=== PATIENT | male | born 1965 | race Caucasian/White ===

== ENCOUNTER 2021-02-04 06:00 | Outpatient (RCR) | payer OTHER, SELFPAY | END 2021-03-05 23:59 | disposition home or self-care (01) | LOC: SOT 06:00 | PROVIDERS: PCP Family Medicine; Visit Provider Family Medicine | DX: M77.12 Lateral epicondylitis, left elbow (principal) | CPT/HCPCS: 97035; 97110; 97140; 97165; 97168 ==

== ENCOUNTER 2021-07-02 06:00 | Outpatient (RCR) | payer OTHER, SELFPAY | END 2021-07-04 23:59 | disposition home or self-care (01) | LOC: SPT 06:00 | PROVIDERS: PCP Family Medicine; Referring Provider Family Medicine; Visit Provider Family Medicine | DX: R26.9 Unspecified abnormalities of gait and mobility (principal) | CPT/HCPCS: 97110; 97161 ==

== ENCOUNTER 2021-07-05 06:00 | Outpatient (RCR) | payer OTHER, SELFPAY | END 2021-08-03 23:59 | disposition home or self-care (01) | LOC: SPT 06:00 | PROVIDERS: PCP Family Medicine; Referring Provider Family Medicine; Visit Provider Family Medicine | DX: R26.9 Unspecified abnormalities of gait and mobility (principal) | CPT/HCPCS: 97110; 97112 ==

== ENCOUNTER 2021-08-04 06:00 | Outpatient (RCR) | payer OTHER, SELFPAY | END 2021-09-03 23:59 | disposition home or self-care (01) | LOC: SPT 06:00 | PROVIDERS: PCP Family Medicine; Referring Provider Family Medicine; Visit Provider Family Medicine | DX: R26.9 Unspecified abnormalities of gait and mobility (principal) | CPT/HCPCS: 97110; 97140 ==

== ENCOUNTER 2021-09-04 06:00 | Outpatient (RCR) | payer OTHER, SELFPAY | END 2021-09-19 23:00 | disposition home or self-care (01) | LOC: SPT 06:00 | PROVIDERS: PCP Family Medicine; Referring Provider Family Medicine; Visit Provider Family Medicine | DX: R26.9 Unspecified abnormalities of gait and mobility (principal); M54.2 Cervicalgia | CPT/HCPCS: 97110; 97140 ==

== ENCOUNTER → 2021-12-11 09:48 | Outpatient (BNVA) | payer OTHER, SELFPAY | PROVIDERS: PCP Family Medicine; Referring Provider Nurse Practitioner; Visit Provider Podiatrist Foot & Ankle Surgery | DX: M21.611 Bunion of right foot (principal); M21.612 Bunion of left foot; M21.41 Flat foot [pes planus] (acquired), right foot; M21.42 Flat foot [pes planus] (acquired), left foot | CPT/HCPCS: 99203; 99204 ==

== ENCOUNTER 2022-12-12 11:27 | Outpatient (RCR) | payer OTHER, SELFPAY | END 2023-01-03 23:59 | disposition home or self-care (01) | LOC: SPT 11:27 | PROVIDERS: Visit Provider Nurse Practitioner | DX: M25.512 Pain in left shoulder (principal) | CPT/HCPCS: 97110; 97161 ==

== ENCOUNTER → 2022-12-15 08:58 | Outpatient (BNVA) | payer OTHER, SELFPAY | PROVIDERS: Visit Provider Podiatrist Foot & Ankle Surgery | DX: M21.611 Bunion of right foot (principal); M21.612 Bunion of left foot; M79.671 Pain in right foot; M79.672 Pain in left foot; M21.41 Flat foot [pes planus] (acquired), right foot; M21.42 Flat foot [pes planus] (acquired), left foot; M20.12 Hallux valgus (acquired), left foot; M20.11 Hallux valgus (acquired), right foot | CPT/HCPCS: 99213 ==

== ENCOUNTER 2023-01-04 06:00 | Outpatient (RCR) | payer OTHER, SELFPAY | END 2023-02-03 23:59 | disposition home or self-care (01) | LOC: SPT 06:00 | PROVIDERS: Visit Provider Nurse Practitioner | DX: M25.512 Pain in left shoulder (principal) | CPT/HCPCS: 97110 ==

== ENCOUNTER 2023-02-19 11:21 | Outpatient (CLI) | payer OTHER, SELFPAY ==
--- NOTE | 2023-02-19 | ECG_ITS ---
[facility] Test Date: 2023-02-19 Pat Name: Matty Cottrell Department: Room: Gender: Male Student Teaching Coordinator: : 1965 Requested By: Jelena Kaur Order Number: [id number] Hodge MD: Lorrie Bridges M.D. Interpretive Statements NAME OF STUDY: TREADMILL STRESS TEST INDICATION: Chest Pain Baseline blood pressure of 121/80 mm Hg, heart rate 61 beats per minute and oxygen saturation of 98%. EKG showed sinus rhythm, incomplete RBBB. Non specific T wave inversion. ??? The patient exercised for 8 min 30 seconds on a [standard Ricki protocol]. Patient attained a maximum heart rate of 146 beats per minute( 89 % of the maximum predicted heart rate) with a blood pressure at the peak exercise of 171/59 mm Hg. The EKG at the peak exercise revealed no significant ST-T wave changes. Patient did [not have any chest pain or any significant arrhythmis with the exercise]??? During the recovery phase, there were no new changes. ??? Blood pressure at the end of the recovery phase was 153/77 mm Hg with a heart rate of 93 beats per minute. ??? CONCLUSION: 1. Normal EKG response to treadmill exercise. 2. No exercise-induced chest pain or cardiac arrhythmia. 3. Excellent exercise tolerance, attained a maximum of 10.2 METs. 4. Baseline normal blood pressure with normal response to exercise. Electronically Signed On 02-22-2023 23:14:34 ASSOCIATE DIRECTOR QA by Lorrie Bridges M.D. [email or web address]
[2023-02-19 13:02] VITALS: BP 151/86; PULSE 96
== END 2023-02-19 11:22 | disposition home or self-care (01) ==
LOC: CDL 11:21
PROVIDERS: PCP Nurse Practitioner; Visit Provider Nurse Practitioner
DX: R07.9 Chest pain, unspecified (principal)
CPT/HCPCS: 93017

== ENCOUNTER → 2023-02-25 13:24 | Outpatient (BNVA) | payer OTHER, SELFPAY | PROVIDERS: PCP Nurse Practitioner; Visit Provider Nurse Practitioner Family | DX: L82.1 Other seborrheic keratosis (principal); D22.4 Melanocytic nevi of scalp and neck; L57.8 Other skin changes due to chronic exposure to nonionizing radiation; L81.4 Other melanin hyperpigmentation | CPT/HCPCS: 99203 ==

== ENCOUNTER → 2023-05-15 09:37 | Outpatient (BNVA) | payer OTHER, SELFPAY | PROVIDERS: PCP Nurse Practitioner; Referring Provider Nurse Practitioner; Visit Provider Internal Medicine | DX: R79.89 Other specified abnormal findings of blood chemistry (principal); R53.83 Other fatigue | CPT/HCPCS: 99204 ==

== ENCOUNTER 2023-05-18 08:19 | Outpatient (CLI) | payer OTHER, SELFPAY ==
[2023-05-18 08:45] LABS: Basophils # 0.1 10^3/uL (0.0-0.1); Basophils % 0.8 %; Eosinophils # 0.2 10^3/uL (0.0-0.8); Eosinophils % 3.5 %; Hematocrit 46.2 % (37-53); Lymphocytes # 1.7 10^3/uL (0.8-4.8); Lymphocytes % 28.8 %; Mean Corpuscular HGB Conc 35.1 g/dL (30-55); Mean Corpuscular Hemoglobin 30.3 pg (27-33); Mean Corpuscular Volume 86.5 fl (82-101); Mean Platelet Volume 9.6 fL (7.4-10.4); Monocytes # 0.5 10^3/uL (0.2-0.9); Monocytes % 8.9 %; Neutrophils # 3.42 10^3/uL (1.8-7.7); Neutrophils % 57.7 %; Nucleated Red Blood Cells % 0 %; Platelet Count 200 10^3/cmm (157-399); Red Blood Count 5.34 10^6/uL (3.85-5.65); Red Cell Distribution Width 12.6 % (12.1-15.1); White Blood Count 5.94 10^3/uL (3.29-11.43)
[2023-05-18 09:14] LABS: Alanine Aminotransferase 26 U/L (0-41); Albumin Level 4.2 g/dL (3.5-5.2); Alkaline Phosphatase 63 U/L (40-130); Anion Gap 11.2 (5-19); Aspartate Amino Transferase 17 U/L (0-40); Blood Urea Nitrogen 15 mg/dL (6-20); Calcium 8.9 mg/dL (8.5-10.5); Carbon Dioxide 26 mmol/L (22-29); Chloride 106 mmol/L (98-107); Chol HDL Ratio 3.31 mg/dL (1.0-5.00); Cholesterol 116 mg/dL (0-200); Free T4 Free Thyroxine 0.79 ng/dL (0.82-1.77); Globulin 2.2 g/dL (1.3-4.6); Glucose 102 mg/dL (65-115); HDL Cholesterol 35 mg/dL (60-100); LDL Cholesterol Calculated 56 mg/dL (50-129); Osmolality Calculated 289 mOsm/kg (285-295); Potassium 4.2 mmol/L (3.5-5.1); Prostate Specific Antigen Scr 2.83 ng/mL (0-4); Sodium 139 mmol/L (136-145); Testosterone Total 402.3 ng/dL (193-740); Thyroid Stimulating Hormone 2.39 uIU/mL (0.27-4.20); Total Bilirubin 0.3 mg/dL (0.15-1.2); Total Protein 6.4 g/dL (6.6-8.7); Triglycerides 123 mg/dL (0-150)
[2023-05-18 09:44] LABS: Prolactin 10.56 ng/mL (4.0-15.2)
== END 2023-05-18 08:20 | disposition home or self-care (01) ==
LOC: LAB 08:21
PROVIDERS: PCP Nurse Practitioner; Visit Provider Internal Medicine
DX: R79.89 Other specified abnormal findings of blood chemistry (principal); R53.83 Other fatigue
CPT/HCPCS: 36415; 80053; 80061; 84146; 84403; 84439; 84443; 85025; G0103

== ENCOUNTER 2023-06-02 07:44 | Outpatient (CLI) | payer OTHER, SELFPAY ==
[2023-06-02 08:32] LABS: Free T4 Free Thyroxine 1.01 ng/dL (0.82-1.77)
== END 2023-06-02 07:45 | disposition home or self-care (01) ==
LOC: LAB 07:45
PROVIDERS: PCP Nurse Practitioner; Visit Provider Internal Medicine
DX: R53.83 Other fatigue (principal)
CPT/HCPCS: 36415; 84439

== ENCOUNTER 2023-06-22 07:59 | Outpatient (CLI) | payer OTHER, SELFPAY ==
[2023-06-22 09:55] LABS: Free T4 Free Thyroxine 1.01 ng/dL (0.82-1.77); Testosterone Total 361.7 ng/dL (193-740)
== END 2023-06-22 08:00 | disposition home or self-care (01) ==
LOC: LAB 08:00
PROVIDERS: PCP Nurse Practitioner; Visit Provider Internal Medicine
DX: R79.89 Other specified abnormal findings of blood chemistry (principal); R53.83 Other fatigue; E07.9 Disorder of thyroid, unspecified
CPT/HCPCS: 36415; 84403; 84439

== ENCOUNTER → 2023-06-25 07:30 | Outpatient (BNVA) | payer OTHER, SELFPAY | PROVIDERS: PCP Nurse Practitioner; Visit Provider Internal Medicine | DX: R79.89 Other specified abnormal findings of blood chemistry (principal); R53.83 Other fatigue; N52.9 Male erectile dysfunction, unspecified; F43.10 Post-traumatic stress disorder, unspecified | CPT/HCPCS: 99214 ==

== ENCOUNTER → 2023-08-26 09:25 | Outpatient (BNVA) | payer OTHER, SELFPAY | PROVIDERS: PCP Nurse Practitioner; Visit Provider Specialist | DX: M25.561 Pain in right knee (principal); G89.29 Other chronic pain | CPT/HCPCS: 73560; 73565; 99204 ==

== ENCOUNTER → 2023-09-22 07:35 | Outpatient (CLI) | payer OTHER, SELFPAY ==
--- NOTE | 2023-09-22 08:00 | MR_ITS ---
WS: [id number] MRI RIGHT KNEE NONCONTRAST TECHNIQUE: Axial PD, coronal PD fat sat, coronal PD, sagittal PD, and sagittal PD fat-sat images obta ined. CLINICAL INFORMATION: right knee pain COMPARISON: None. FINDINGS: Distal quadriceps and patellar tendons are intact. Hypertrophic patella. Diffuse thickening with incr eased signal involving the ACL compatible with mucoid degeneration. Small ganglion cyst at the ACL in sertion measuring 7.5 mm. Normal PCL. Tiny suprapatellar effusion. Longitudinal tear involving the medial meniscus extending to the articular surface at the posterior h orn. Normal lateral meniscus. Advanced chondromalacia patella. Subchondral edema in the patella. Normal medial and lateral patellar retinaculum. Normal popliteal fossa. Medial and lateral collateral ligaments appear intact. Normal p opliteus. Normal popliteal fossa. Fibula head appears normal. MR/MR knee RT wo con* [id number] IMPRESSION: 1. Diffuse thickening with mucoid degeneration involving the ACL with increase d T1 and T2 signal. 2. Normal PCL. 3. Small ganglion cyst along the distal ACL insertion measuring 7.5 mm. 4. Longitudinal tear involving the posterior horn medial meniscus extending to the articular surface and the meniscal root. 5. Advanced chondromalacia patella with subchondral edema. Chondromalacia wors e involving the medial patellar facet. 6. 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 Outbridge grading: grade IV: full-thickness cartilage loss with underlying bone reactive changes
== END | disposition home or self-care (01) ==
LOC: RAD 07:34
PROVIDERS: PCP Nurse Practitioner; Visit Provider Specialist
DX: M17.11 Unilateral primary osteoarthritis, right knee (principal); M23.611 Other spontaneous disruption of anterior cruciate ligament of right knee; M67.461 Ganglion, right knee; M23.221 Derangement of posterior horn of medial meniscus due to old tear or injury, right knee; M22.41 Chondromalacia patellae, right knee
CPT/HCPCS: 73721

== ENCOUNTER → 2023-09-30 12:13 | Outpatient (BNVA) | payer OTHER, SELFPAY | PROVIDERS: PCP Nurse Practitioner; Visit Provider Nurse Practitioner | DX: M25.561 Pain in right knee (principal) | CPT/HCPCS: 36415; 80053; 81003; 85025 ==

== ENCOUNTER 2023-10-20 09:30 | Day surgery (SDC) | payer OTHER, SELFPAY ==
[2023-10-20] VITALS (11 sets, daily range): BP systolic 113–139; BP diastolic 70–96; PULSE 64–95; RESP 15–18; TEMP 36.2–36.6; O2SAT 92–99; BMI 31.5
[2023-10-20] MEDS: CELEcoxib 200 mg Capsule 400 MG PO (10:01)
[2023-10-20] MEDS: gabapentin 300 mg Capsule PO (10:01)
[2023-10-20] MEDS: sodium chloride 0.9% 1,000 ML 30 ML IV (10:01)
[2023-10-20] MEDS: acetaminophen 1,000 MG/100 ML PIGGYBACK 400 MG IV (10:03)
--- NOTE | 2023-10-20 10:27 | W.PM.OPSUD ---
Surgery/Procedure H&P Update DATE OF PROCEDURE: October 20, 2023 DATE H&P PERFORMED: 09/30/23 H&P UPDATE INFORMATION: I have reviewed H&P completed within last 30 days, I have examined patient prior to procedure, No changes to prior documentation and H&P is in [facility] EMR on date indicated PRIMARY INDICATION FOR PROCEDURE: MRI Right Knee IMPRESSION: 1. Diffuse thickening with mucoid degeneration involving the ACL with increased T1 and T2 signal. 2. Normal PCL. 3. Small ganglion cyst along the distal ACL insertion measuring 7.5 mm. 4. Longitudinal tear involving the posterior horn medial meniscus extending to the articular surface and the meniscal root. 5. Advanced chondromalacia patella with subchondral edema. Chondromalacia worse involving the medial patellar facet. 6. 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 PLANNED PROCEDURE: Operation Date: 10/20/23 11:10 Proposed Procedures p Knee Arthroscopy WITH MENISCECTOMY AND DEBRIDEMENT(Right) - Haylie Nevarez MD Related Problem List Diagnoses (1) Acute medial meniscus tear of right knee: Qualifiers: Encounter type: initial encounter Qualified Code(s): S83.241A - Other tear of medial meniscus, current injury, right knee, initial encounter (2) Primary osteoarthritis of right knee:
--- NOTE | 2023-10-20 10:42 | ANES.PREANE2 ---
Pre-Anesthetic Assessment Height/Weight: Height 1.78 m Weight 99.79 kg Temp Pulse Resp BP Pulse Ox O2 Del Method 97.6 F 64 17 119/79 99 Room Air 10/20/23 09:47 10/20/23 09:47 10/20/23 09:47 10/20/23 09:47 10/20/23 09:47 10/20/23 09:47 Operation Date: 10/20/23 11:10 Proposed Procedures p Knee Arthroscopy WITH MENISCECTOMY AND DEBRIDEMENT(Right) - Haylie Nevarez MD Familial anesthetic complications: None Was Beta Joshua taken within 24 hours: N/A Was Clonidine taken within 24 hours: N/A Last intake: Intake Last Liquid Date 10/19/23 Last Liquid Time 22:00 Last Solid Date 10/19/23 Last Solid Time 18:00 Social No alcohol and No tobacco Exam alert, oriented x 3, clear to auscultation bilaterally and regular rate & rhythm Airway Mallampati: Class III Dentition: caps Pulmonary Sleep Apnea GI Gastroesophageal Reflux Disease Metabolic Hyperlipidemia Anesthetic Plan ASA status: 2 Anesthesia: General Risk of > 500 ml blood loss (7ml/kg in children): No Medications/Allergies Home Medications Medication Instructions Recorded Confirmed Last Taken Type bupropion HCl 100 mg tablet 300 mg PO BID 12/11/21 10/19/23 10/19/23 History cetirizine 10 mg tablet 10 mg PO DAILY PRN allergies 12/11/21 10/19/23 10/19/23 History fluoride (sodium) 1.1 % dental 1 applic dental DAILY 12/11/21 10/19/23 10/19/23 History cream gabapentin 300 mg capsule 600 mg PO TID 12/11/21 10/19/23 10/19/23 History meloxicam 15 mg tablet 15 mg PO DAILY 12/11/21 10/19/23 10/14/23 History methocarbamol 500 mg tablet 500 mg PO ONCE 12/11/21 10/19/23 10/19/23 History omeprazole 20 mg capsule,delayed 20 mg PO DAILY 12/11/21 10/19/23 10/19/23 History release tadalafil 20 mg tablet 20 mg PO DAILY PRN Sexual Activity 12/11/21 10/19/23 Unknown History Co-Polymer Low Profile custom #1 ea 01/06/23 09/30/23 Unknown Rx insoles citalopram 40 mg tablet 40 mg PO DAILY 05/15/23 10/19/23 10/12/23 History prazosin 1 mg capsule 1 mg PO BID 05/15/23 10/19/23 10/19/23 History propranolol 10 mg tablet 10 mg PO ONCE 05/15/23 10/19/23 10/19/23 History zolpidem 5 mg tablet 5 mg PO BEDTIME 05/15/23 10/19/23 Unknown History finasteride 5 mg tablet 5 mg PO DAILY 06/25/23 10/19/23 10/19/23 History rosuvastatin 20 mg tablet 20 mg PO DAILY 06/25/23 10/19/23 10/18/23 History Allergies Allergy/AdvReac Type Severity Reaction Status Date / Time No Known Allergies Allergy Verified 09/30/23 11:02 Current Medications Generic Name Dose Route Start Last Admin Trade Name Freq PRN Reason Stop Dose Admin Sodium Chloride 1,000 mls @ 30 mls/hr 10/20/23 09:45 10/20/23 10:01 Sodium Chloride 0.9% IV 10/21/23 09:44 30 mls/hr .Q24H YEYO Administration PFSH Anesthesia Medical History Acute medial meniscus tear of right knee Primary osteoarthritis of right knee Social History Smoking and tobacco/nicotine status: never used tobacco/nicotine Data Anesthesia Cardiac Studies: No Data to Display
[2023-10-20] MEDS: ceFAZolin 2,000 MG in sodium chloride 0.9% (plus) 50 ML 100 MG IV (11:08)
[2023-10-20] MEDS: ROPivacaine 0.5% SDV 30 mL 150 MG INJECTION (11:50)
[2023-10-20] MEDS: morphine 4 mg/mL SDV 1 mL 8 MG XX (11:55)
--- NOTE | 2023-10-20 12:52 | XRR_ITS ---
PROCEDURE INFORMATION: Exam: XR Chest Exam date and time: 10/20/2023 1:16 PM Age: 58 years old Clinical indication: Cough; Additional info: Possible aspiration, in post op TECHNIQUE: Imaging protocol: Radiologic exam of the chest. Views: 1 view. COMPARISON: No relevant prior studies available. FINDINGS: Tubes, catheters and devices: Overlying monitor leads. Lungs: Asymmetric increased markings mid and medial aspect of the left lung base in relation to the right. Mild vertical linear opacity medial lower right lung and lung base could represent atelectasis or scar. No consolidation. Pleural spaces: No pleural effusion or pneumothorax. Heart/Mediastinum: Cardiomediastinal contours appear unremarkable. No cardiomegaly. Bones/joints: Visualized osseous structures show no acute abnormality. XR/XR chest 1V portable [id number] IMPRESSION: Asymmetric increased markings within the mid and medial aspect of the left lung base suggestive of mild left basilar infiltrate, including possible aspiration, for follow-up.
--- NOTE | 2023-10-20 13:44 | P.OP_ITS ---
Operative Report Date of procedure: October 20, 2023 Pre-op diagnosis: Right knee medial meniscal tear and degenerative osteoarthritis Post-op diagnosis: Right knee medial and lateral meniscal tears and degenerative arthritis Post-op findings: Right knee medial and lateral meniscal tears and degenerative osteoarthritis. Procedure done: Right arthroscopic knee surgery with partial medial and lateral meniscectomies as well as chondroplasty lateral tibial plateau and patella Implants: None Specimens removed/disposition: None Surgeon: Haylie Nevarez MD Music Supervisor: Brisa Petit, nurse practitioner, who services were required for positioning of the leg during the arthroscopic procedure. Anesthesia: General (Initially LMA with progression to intubated intraoperatively, ASA 2) Estimated blood loss (mL): 5 Tourniquet time (min): 70 (At 250 mmHg) IV fluids (mL): 1,100 Urine output (mL): 0 (No Bethea) Complications: None Findings: Inner rim tearing of the lateral meniscus and complex tear of the medial meniscus involving the anterior and posterior horns. Condition: stable Disposition: PACU (Then return to same-day surgery for discharge to home) Brief History: This 58-year-old gentleman presents today for arthroscopic knee surgery following an MRI with documentation of a medial meniscus tear as well as chondromalacia. The patient has findings consistent with his osteoarthritis, but also, has acute symptoms which are more consistent with meniscal pathology. After discussion in the office, the patient wishes to proceed with arthroscopic intervention. Risks and complications were discussed with him, and consents were signed. Questions were also answered at that time. The patient is seen in the preoperative holding area additional questions were answered. Procedure: Patient was brought to the operating theater and after undergoing adequate anesthesia, initially with an LMA and subsequently converted to intubated, ASA 2, the patient's right lower extremity was prepped and draped in usual fashion utilizing DuraPrep. A tourniquet was placed high on the leg prior to prepping and draping. The tourniquet was elevated prior to commencement of the surgical procedure to 250 mmHg. Total tourniquet time was 70 minutes. Elevation followed prepping and exsanguination. Prior to commencement of the surgical procedure, a surgical pause was performed. At the time of the surgical pause, we identified the site and side of surgery. We also confirm the patient's identity and appropriate and timely administration of preoperative antibiotics. Preoperative surgical markings were also visualized at this time. Standard arthroscopic portals were utilized including superolateral, inferomedial, and inferolateral portals. The examination commenced in the suprapatellar pouch area where the patient was noted to have chondromalacia of the significant degree on the undersurface of the patella. The arthroscope was then passed in the medial compartment where there was noted to be tearing of the posterior horn of the medial meniscus involving the posterior third. There was also some irregularity anteriorly. The arthroscope was then passed across the notch area where anterior cruciate ligament was visualized and found to be intact, but there was a small cyst and also synovitis in this area. The scope was passed into the lateral compartment with the knee in a [id number] position. Lateral meniscus was noted to have inner rim tearing consistent with degenerative type tearing. This was palpated and found to be not displaceable into the joint. The inner rim was debrided with a combination of intra- articular shaver and the intra-articular heat wand. Once lateral meniscus had been thus prepared it was palpated and found to be intact and not displaceable into the knee joint. The synovium was removed from surrounding the anterior cruciate ligament. The small cyst which was visualized was also removed. Scope was then returned to the medial compartment where debridement was accomplished of the medial meniscus. A combination of the intra-articular shaver, intra- articular heat wand, and a basket forcep was used to address this meniscal tear which was complex in nature. Additionally, chondroplasty was performed of the medial tibial plateau as well as the lateral tibial plateau. The meniscus was palpated and found to be not displaceable into the knee joint. The arthroscope was then returned to the patellofemoral joint where a chondroplasty was performed of the undersurface of the patella. This chondroplasty involved use of the intra-articular shaver as well as the heat wand. Once the patella had been addressed, the scope was passed back through the knee compartments to evaluate for other abnormalities. Finding none, attention was directed to closure. The knee was copiously irrigated and suctioned dry. Following this, each portal was closed with a simple suture followed by Dermabond and OpSite. Additionally, the knee was injected with 20 mL of half percent ropivacaine and 8 mg of morphine. Additional 10 mL of ropivacaine was placed about the portals. Sterile dressing was placed consisting of the Dermabond and OpSite followed by soft roll and an Mauro wrap. Patient was returned to Recovery Room in satisfactory condition where he will be discharged home to follow-up with me in the office as scheduled. There were no complications and no specimens. Related Problem List Diagnoses (1) Acute medial meniscus tear of right knee: (2) Acute lateral meniscus tear of right knee: (3) Primary osteoarthritis of right knee:
--- NOTE | 2023-10-20 14:41 | P.ANESPOST_ITS ---
Inpatient post-anesthesia follow up: Vital signs: Temperature 97.8 F Pulse Rate 70 Respiratory Rate 16 Blood Pressure 139/96 Pulse Oximetry 97 Oxygen Delivery Me thod Room Air Oxygen Flow Rate 6 Fraction of Inspir ed Oxygen Additional Comments: RESEARCH CHEMICAL ENGINEER stated patient had bile in mouth shortly after extubation, concerning for possible aspiration. Baseline CXR obtained shows CXR IMPRESSION: Asymmetric increased markings within the mid and medial aspect of the left lung base suggestive of mild left basilar infiltrate, including possible aspiration, for follow-up. however, Patient is satting well on room air (97%), no SOB, no fever, mild ocassional cough. Instructed patient and his to continue to monitor his status over the next 24 to 48 hrs, if he develops fever, sweating, n/v, cough, sob/dyspea, malaise etc he is to go to ER or Urgent care for possible interval CXR and antibiotic regimen.
--- NOTE | 2023-10-21 12:20 | PM.MISC ---
Miscellaneous Note Purpose of Documentation: Telephone follow-up Note: Contacted to patient for update on clinical status, some mild coughing and feel some chest tightness. No fever or difficulty breathing or malaise. States he is taking the doxycycline that Dr. castro prescribed. Of note he is concerned that his knee is enlarged and tight as well, with difficulty bending it. Thinks it may possibly be expected post surgery, but was looking affirmation. He called this morning and is waiting for a response back from surgery with regard to this.
== END 2023-10-20 15:10 | disposition home or self-care (01) ==
PROVIDERS: PCP Nurse Practitioner; Visit Provider Specialist
PROC: (CPT 29870; principal; 2023-10-20 11:10)
DX: M17.11 Unilateral primary osteoarthritis, right knee (principal); S83.281A Other tear of lateral meniscus, current injury, right knee, initial encounter; S83.241A Other tear of medial meniscus, current injury, right knee, initial encounter; X58.XXXA Exposure to other specified factors, initial encounter; G47.30 Sleep apnea, unspecified; K21.9 Gastro-esophageal reflux disease without esophagitis; E78.5 Hyperlipidemia, unspecified
CPT/HCPCS: 29880; 71045; J0131; J0330; J0690; J1100; J1170; J2250; J2270; J2405; J2704; J2795; J3010; J7030

== ENCOUNTER 2023-10-26 16:30 | Emergency (ER) | payer OTHER, SELFPAY ==
[2023-10-26 16:41] VITALS: BP 147/88; PULSE 73; TEMP 36.6; O2SAT 99; BMI 31.5
[2023-10-26 16:47] VITALS: BP 137/81; PULSE 72; RESP 16; O2SAT 99
--- NOTE | 2023-10-26 16:48 | USR_ITS ---
PROCEDURE INFORMATION: Exam: US Duplex Right Lower Extremity Veins, Limited Exam date and time: 10/26/2023 5:10 PM Age: 58 years old Clinical indication: Pain; Leg, lower; Right; Prior surgery; Surgery date: <1 month; Surgery type: Ligaments in knee, no other information given; Additional info: Pain/swelling; Recent surgery TECHNIQUE: Imaging protocol: Real-time duplex ultrasound of the right extremity with 2-D gan scale, color Doppler flow and spectral waveform analysis including responses to compression and other maneuvers (when performed) with image documentation. Limited exam was focused on the right lower extremity veins. COMPARISON: MR knee RT wo con* [id number] 09/22/2023 7:54 AM FINDINGS: Right deep veins: Unremarkable. The common femoral, femoral, proximal profunda femoral, popliteal, posterior tibial and peroneal veins are patent without thrombus. Normal Doppler waveforms. Normal compressibility and/or augmentation response. Superficial veins: Greater saphenous vein at the saphenofemoral junction is patent without thrombus. Soft tissues: Unremarkable. US/[place] [id number] IMPRESSION: No sonographic evidence of deep vein thrombosis.
--- NOTE | 2023-10-26 17:33 | W.ED.EXTPRO ---
HPI - Extremity Problem General: Chief complaint: Extremity Problem,Nontraumatic Stated complaint: [facility], possible septic and blood clot Time Seen by Provider: 10/26/23 16:56 History of Present Illness: 58-year-old man who had a meniscal repair surgery with Dr. Yoon 5 days ago who presents the emergency room with some redness on his posterior leg. He appears to have a patch of either cellulitis or contact dermatitis on the backside of his leg. No signs of DVT. No pain in the joint. No swelling out of proportion to his surgery in the joint. No systemic fevers. Review of Systems Narrative: Constitutional symptoms: Negative except as documented in HPI. Skin symptoms: Negative except as documented in HPI. Eye symptoms: Negative except as documented in HPI. ENMT symptoms: Negative except as documented in HPI. Respiratory symptoms: Negative except as documented in HPI. Cardiovascular symptoms: Negative except as documented in HPI. Gastrointestinal symptoms: Negative except as documented in HPI. Genitourinary symptoms: Negative except as documented in HPI. Musculoskeletal symptoms: Negative except as documented in HPI. Neurologic symptoms: Negative except as documented in HPI. Psychiatric symptoms: Negative except as documented in HPI. Endocrine symptoms: Negative except as documented in HPI. [facility] ED PFSH: Medical History Acute medial meniscus tear of right knee Primary osteoarthritis of right knee Social History Smoking and tobacco/nicotine status: never used tobacco/nicotine Physical Exam Narrative: EXAM NARRATIVE: General: Alert, no acute distress. Skin: warm and dry Head: Normocephalic Neck: Trachea midline Eye: Extraocular movements are intact. Ears, nose, mouth and throat: Oral mucosa moist Respiratory: Respirations are non-labored Musculoskeletal: Normal ROM, surgical incisions are clean dry and intact. No pain out of proportion to having just had surgery on his knee. Some mild effusion but appears just to have a cellulitis on the backside of his leg. This is a patch about 4 cm x 10 cm along its square and almost looks like it could have been from contact with a bandage or something. He says he does not know anything that is been on there. Neurological: Alert and oriented, No focal neurological deficit observed. Psychiatric: Cooperative, appropriate mood & affect. Course Vital Signs: Vital signs: Vital Signs Temperature 97.8 F 10/26/23 16:41 Pulse Rate 72 10/26/23 16:47 Respiratory Rate 16 10/26/23 16:47 Blood Pressure 137/81 10/26/23 16:47 Pulse Oximetry 99 10/26/23 16:47 Oxygen Delivery Me thod Room Air 10/26/23 16:47 MDM - Extremity (Nontraumatic) Medical Decision Making Consultation: I spoke with who is on-call for orthopedics today. Dr. Nevarez was not available at this time for consultation. He agrees with antibiotics and follow-up in clinic. Assessment and plan: Cellulitis - Discharged home - Discussed plan with patient. Answered any questions. - Evaluation and treatment of this problem were appropriate in the emergency setting. No radiology studies performed this visit Discharge Plan Discharge Patient Disposition: Home Clinical Impression: Cellulitis Condition: Stable Prescriptions: New Bactrim DS 800-160 mg tablet 2 tab PO BID 7 Days Qty: 28 0RF No Action bupropion HCl 100 mg tablet 300 mg PO BID cetirizine 10 mg tablet 10 mg PO DAILY PRN (Reason: allergies) gabapentin 300 mg capsule 600 mg PO TID meloxicam 15 mg tablet 15 mg PO DAILY methocarbamol 500 mg tablet 500 mg PO ONCE omeprazole 20 mg capsule,delayed release(DR/EC) 20 mg PO DAILY fluoride (sodium) 1.1 % cream 1 applic dental DAILY tadalafil 20 mg tablet 20 mg PO DAILY PRN (Reason: Sexual Activity) Rx Instructions: administer approximately 30min before sexual activity; do not use more than 1 dose per 24hrs propranolol 10 mg tablet 10 mg PO ONCE zolpidem 5 mg tablet 5 mg PO BEDTIME prazosin 1 mg capsule 1 mg PO BID citalopram 40 mg tablet 40 mg PO DAILY finasteride 5 mg tablet 5 mg PO DAILY rosuvastatin 20 mg tablet 20 mg PO DAILY (DME) Co-Polymer Low Profile custom insoles See Rx Instructions .Route .MEDSUPPLY Qty: 1 0RF Rx Instructions: As directed by [facility] doxycycline hyclate 100 mg capsule 100 mg PO BID Qty: 20 0RF prednisone 20 mg tablet 20 mg PO DAILY 5 Days Qty: 10 0RF Rx Instructions: 40mg a day for 5 days hydrocodone-acetaminophen 5-325 mg tablet 1 tab PO Q4H PRN (Reason: pain) 7 Days Qty: 30 0RF Discharge Orders: Discharge ED (Routine); Ordered 10/26/23 Ordered By: Taniya Pritchard Referrals: Haylie Nevarez MD [Physician] - 1-3 days (Please call for an appointment and follow in clinic in the next day or 2.) Jelena Mcwilliams, DEBATE DIRECTOR [Primary Care Provider] - 1-3 days Discharge Diet: Usual diet Discharge Activity: Increase activity as tolerated Patient Instructions: Cellulitis (ED) Activity Restrictions/Additional Instructions: Thank you for choosing [facility] for your healthcare needs today. Please realize this is an emergency room and that we are providing you with a medical screening exam and this may not be complete and all inclusive of all the testing and or work up that you may need to determine your ailment or severity of your illness. You have been screened and evaluated and felt safe for discharge. Health conditions do change or evolve sometimes and as such it is important that you follow up with your Primary Doctor to be re checked, 3-5 days is a general good time frame for follow up. You are always welcome to return to the ED for re assessment if your symptoms are worsening or you have new concerns Coding Level of Care Code ED Mold Filler [employer]s for Edelmira Garcia
[2023-10-26 17:49] VITALS: BP 119/67; PULSE 71; RESP 18; O2SAT 98
== END 2023-10-26 17:52 | disposition home or self-care (01) ==
PROVIDERS: Emergency Provider Emergency Medicine; PCP Nurse Practitioner
DX: T81.40XA Infection following a procedure, unspecified, initial encounter (principal); L03.115 Cellulitis of right lower limb
CPT/HCPCS: 93971; 99284

== ENCOUNTER → 2023-10-28 10:01 | Outpatient (BNVA) | payer OTHER, SELFPAY | PROVIDERS: PCP Nurse Practitioner; Visit Provider Specialist | DX: S83.281D Other tear of lateral meniscus, current injury, right knee, subsequent encounter (principal); M25.761 Osteophyte, right knee; M85.861 Other specified disorders of bone density and structure, right lower leg | CPT/HCPCS: 73560; 73565 ==

== ENCOUNTER → 2023-12-21 08:56 | Outpatient (BNVA) | payer OTHER, SELFPAY | PROVIDERS: PCP Nurse Practitioner; Visit Provider Podiatrist Foot & Ankle Surgery | DX: M21.611 Bunion of right foot (principal); M21.612 Bunion of left foot; M79.671 Pain in right foot; M79.672 Pain in left foot; M21.41 Flat foot [pes planus] (acquired), right foot; M21.42 Flat foot [pes planus] (acquired), left foot; M20.12 Hallux valgus (acquired), left foot; M20.11 Hallux valgus (acquired), right foot | CPT/HCPCS: 99213 ==

== ENCOUNTER 2024-01-13 10:13 | Outpatient (CLI) | payer OTHER, SELFPAY ==
--- NOTE | 2024-01-13 10:16 | MR_ITS ---
WS: [id number] MRI LEFT SHOULDER HISTORY: SHOULDER IMPINGEMENT, LEFT COMPARISON: None available. TECHNIQUE: Multiplanar sequences of the shoulder joint are submitted. Mild AC joint arthritis. Mild osteophyte encroachment upon the myotendinous insertion of the supraspi natus with deformity. Mild subacromial impingement secondary to a small osteophyte on the undersurfac e of the acromion. No significant effusion subdeltoid or subacromial bursa. No os acromion. Normal po sition of the biceps tendon. Very small insertion site tear with interstitial extension of the anterior most infraspinatus tendon. There is no tendon retraction. The remaining tendons are intact. No muscle atrophy or edema. [place] umeral ligament is normal. Anterior superior labral tear is torn. MR/MR shoulder LT wo con* [id number] IMPRESSION: 1. Anterosuperior labral tear. 2. Small insertion site tear of the anteriormost infraspinatus tendon with int erstitial extension. 3. Mild AC joint arthritis.
== END 2024-01-13 10:14 | disposition home or self-care (01) ==
LOC: RAD 10:14
PROVIDERS: PCP Nurse Practitioner; Visit Provider Orthopaedic Surgery
DX: M75.42 Impingement syndrome of left shoulder (principal); M19.012 Primary osteoarthritis, left shoulder; S43.492A Other sprain of left shoulder joint, initial encounter
CPT/HCPCS: 73221

== ENCOUNTER 2024-05-09 10:37 | Outpatient (CLI) | payer OTHER, SELFPAY ==
[2024-05-09 10:56] LABS: Hematocrit 49.8 % (37-53)
[2024-05-09 11:25] LABS: Alanine Aminotransferase 24 U/L (0-41); Albumin Level 4.6 g/dL (3.5-5.2); Alkaline Phosphatase 68 U/L (40-130); Aspartate Amino Transferase 19 U/L (0-40); Estradiol 19.7 pg/mL (7.63-42.6); Globulin 2.5 g/dL (1.3-4.6); Prostate Specific Antigen Scr 3.58 ng/mL (0-4); Total Bilirubin 0.6 mg/dL (0.15-1.2); Total Protein 7.1 g/dL (6.6-8.7)
[2024-05-09 12:52] LABS: Testosterone Total 387.2 ng/dL (193-740)
== END 2024-05-09 10:38 | disposition home or self-care (01) ==
PROVIDERS: PCP Nurse Practitioner; Visit Provider Nurse Practitioner Family
DX: Z12.5 Encounter for screening for malignant neoplasm of prostate (principal); E29.1 Testicular hypofunction
CPT/HCPCS: 36415; 80076; 82670; 84403; 85014; G0103

== ENCOUNTER 2024-09-13 08:15 | Outpatient (CLI) | payer OTHER, SELFPAY ==
[2024-09-13 09:01] LABS: Testosterone Total 254.6 ng/dL (193-740)
== END 2024-09-13 08:16 | disposition home or self-care (01) ==
LOC: LAB 08:18
PROVIDERS: PCP Nurse Practitioner; Visit Provider Nurse Practitioner Family
DX: E29.1 Testicular hypofunction (principal)
CPT/HCPCS: 36415; 84403

== ENCOUNTER → 2024-10-31 08:41 | Outpatient (BNVA) | payer OTHER, SELFPAY | PROVIDERS: PCP Nurse Practitioner; Visit Provider Dermatology | DX: L82.1 Other seborrheic keratosis (principal); L73.8 Other specified follicular disorders; D22.71 Melanocytic nevi of right lower limb, including hip; D22.5 Melanocytic nevi of trunk; L81.4 Other melanin hyperpigmentation; L98.8 Other specified disorders of the skin and subcutaneous tissue; D48.5 Neoplasm of uncertain behavior of skin | CPT/HCPCS: 11102; 99213 ==

== ENCOUNTER 2024-12-29 09:32 | Outpatient (CLI) | payer OTHER, SELFPAY ==
[2024-12-29 11:07] LABS: Hematocrit 50.3 % (37-53)
[2024-12-29 11:45] LABS: Prostate Specific Antigen 2.550 ng/mL (0-4)
== END 2024-12-29 09:33 | disposition home or self-care (01) ==
PROVIDERS: PCP Nurse Practitioner; Visit Provider Urology
DX: R97.20 Elevated prostate specific antigen [PSA] (principal); E29.1 Testicular hypofunction
CPT/HCPCS: 36415; 82670; 84153; 84403; 85014

== ENCOUNTER 2025-03-28 09:20 | Outpatient (CLI) | payer OTHER, SELFPAY ==
[2025-03-28 10:16] LABS: Hematocrit 50.6 % (37-53)
[2025-03-28 10:45] LABS: Alanine Aminotransferase 21 U/L (0-41); Albumin Level 4.6 g/dL (3.5-5.2); Alkaline Phosphatase 62 U/L (40-130); Aspartate Amino Transferase 17 U/L (0-40); Globulin 1.9 g/dL (1.3-4.6); Prostate Specific Antigen 2.440 ng/mL (0-4); Total Protein 6.5 g/dL (6.6-8.7)
== END 2025-03-28 09:21 | disposition home or self-care (01) ==
PROVIDERS: PCP Nurse Practitioner; Visit Provider Nurse Practitioner Family
DX: N40.1 Benign prostatic hyperplasia with lower urinary tract symptoms (principal); Z12.5 Encounter for screening for malignant neoplasm of prostate; E29.1 Testicular hypofunction
CPT/HCPCS: 36415; 80076; 82670; 84153; 84403; 85014